=== PATIENT | female | born 1960 | race Caucasian/White ===

== ENCOUNTER 2017-03-23 10:12 | Emergency (ER) | payer OTHER | END 2017-03-23 11:38 | disposition home or self-care (01) | LOC: D.ER 10:12 | DX: S29.011A Strain of muscle and tendon of front wall of thorax, initial encounter (principal); X58.XXXA Exposure to other specified factors, initial encounter; Y93.89 Activity, other specified; Y92.89 Other specified places as the place of occurrence of the external cause; I10 Essential (primary) hypertension; E05.90 Thyrotoxicosis, unspecified without thyrotoxic crisis or storm; E83.119 Hemochromatosis, unspecified; F17.200 Nicotine dependence, unspecified, uncomplicated ==

== ENCOUNTER 2017-06-26 14:27 | Emergency (ER) | payer OTHER ==
[2017-06-26 15:06] LABS: BASOPHILS 0.1 % (0-2); EOSINOPHILS 0.3 % (0-7); HEMATOCRIT 30.9 % (36.0-48.0); HEMOGLOBIN 10.6 g/dL (12-16); IMMATURE GRANULOCYTES 0.1 % (0-5); LYMPHOCYTES 24.9 % (15-50); MCHC 34.3 g/dL (31.0-37.0); MCV 110.8 fL (80.0-100.0); MEAN PLATELET VOLUME 9.1 fL (7.4-10.4); MONOCYTES 6.2 % (2-11); NEUTROPHILS 68.4 % (40-80); PLATELET COUNT 322 10x3/uL (130-400); RBC 2.79 10x6/uL (4.00-5.40); RDW 14.5 % (11.5-14.5); WBC 6.8 10x3/uL (4.8-10.8)
[2017-06-26 15:24] LABS: ALBUMIN 3.4 g/dL (3.4-5.0); ANION GAP 10.2 mmol/L (8-16); BILIRUBIN - TOTAL 0.48 mg/dL (0.2-1.3); CALCIUM 8.4 mg/dL (8.5-10.1); CARBON DIOXIDE 31.8 mmol/L (21.0-32.0); CREATININE - SERUM 1.1 mg/dL (0.6-1.3); PROTEIN - SERUM 6.5 g/dL (6.4-8.2)
[2017-06-26 15:53] LABS: APPEARANCE CLEAR (CLEAR); BILIRUBIN NEGATIVE (NEGATIVE); COLOR YELLOW (YELLOW); GLUCOSE NEGATIVE (NEGATIVE); KETONE NEGATIVE (NEGATIVE); LEUKOCYTE ESTERASE 1+ (NEGATIVE); NITRITE NEGATIVE (NEGATIVE); PROTEIN 1+ mg/dL (NEGATIVE); UROBILINOGEN NORMAL (NORMAL)
[2017-06-26 15:56] LABS: BACTERIA MODERATE /hpf (NONE SEEN); EPITHELIAL CELLS 0-5 /hpf (0-5); WHITE CELLS - URINE 0-5 /hpf (0-5)
[2017-06-26 16:30] LABS: THYROID STIMULATING HORMONE 0.39 uIU/mL (0.36-3.74)
[2017-06-26 17:00] LABS: HELICOBACTER PYLORI IGG POSITIVE (NEGATIVE)
== END 2017-06-26 17:48 | disposition home or self-care (01) ==
LOC: D.ER 14:27
PROVIDERS: Emergency Medicine
DX: E87.6 Hypokalemia (principal); K29.60 Other gastritis without bleeding; I10 Essential (primary) hypertension; E05.90 Thyrotoxicosis, unspecified without thyrotoxic crisis or storm; F17.200 Nicotine dependence, unspecified, uncomplicated

== ENCOUNTER 2017-08-12 15:04 | Inpatient (IN) | payer OTHER ==
[2017-08-12] MEDS ORDERED: NEURONTIN 300300 MG PO ×2 (15:32)
[2017-08-12] MEDS ORDERED: NORVASC5 MG PO (15:33)
[2017-08-12] MEDS ORDERED: VITAMIN B-121000 MCG PO (15:34)
[2017-08-12] MEDS ORDERED: VITAMIN B-1000 MCG/M IM (15:35)
[2017-08-12] MEDS ORDERED: CYMBALTA60 MG PO (15:35)
[2017-08-12] MEDS ORDERED: PREVACID30 MG PO (15:36)
[2017-08-12] MEDS ORDERED: ZOFRAN8 MG PO (15:37)
[2017-08-12] MEDS ORDERED: VITAMIN B-1100 M1 (15:47)
[2017-08-12] MEDS ORDERED: VITAMIN B-625 MG PO (15:47)
[2017-08-12] MEDS ORDERED: XARELTO20 MG PO (15:52)
[2017-08-12 16:27] VITALS: BP 151/88; BMI 25.6
--- NOTE | 2017-08-12 16:45 | NUR ---
ADMIT TO FLOOR FROM [facility]. CAME TO FLOOR IN W/C. ALERT AND ORIENTED X4. SPEECH CLEAR. PT STATES SHE HAD GUILLAIN BARRE AND HAS NUMBNESS AND TINGLING TO BILAT HANDS. HAS NUMBNESS TO TO BLE. LLE HAS 4+ EDEMA, RLE HAS 3+ EDEMA. SHE HAS POOR FINE MOTOR SKILLS TO BOTH HANDS AND ALSO HAS TREMORS TO BUE. WHEN STANDING SHE HAS POOR BALANCE.
--- NOTE | 2017-08-12 18:15 | NUR ---
SITTING UP EATING SUPPER IN BED.
--- NOTE | 2017-08-12 20:30 | NUR ---
IN BED, AWAKE. NO C/O AT THIS TIME.
[2017-08-12] MEDS ORDERED: OXYCODONE HCL5 MG PO (20:35)
[2017-08-12 20:41] VITALS: BP 163/88
[2017-08-12] MEDS ORDERED: MOBIC7.5 MG PO (21:12)
[2017-08-12] MEDS ORDERED: SYNTHROID75 MCG PO (21:13)
--- NOTE | 2017-08-12 21:30 | NUR ---
AFTER SORTING OUT VARIOUS ISSUES WITH MED SCHEDULING AND INCOMPLETE DISCHARGE MED REC FROM [facility]. WAS ABLE TO GIVE PROPERLY SCHEDULED HS MEDS WELL OXY IR 5MG PO FOR PAIN LEVEL OF 8/10 IN BILAT HANDS. HAS NO OTHER C/O AT THIS TIME.
--- NOTE | 2017-08-12 23:10 | NUR ---
PT. IN BED WITH HOB UP FOR COMFORT WATCHING TV. NO VOICED NEEDS AT THIS TIME. CALL LIGHT WITHIN REACH.
--- NOTE | 2017-08-13 01:29 | NUR ---
PT. IN BED LYING ON HER LEFT SIDE WITH EYES CLOSED AND RESP. DEEP AND EVEN. CALL LIGHT WITHIN REACH.
--- NOTE | 2017-08-13 04:16 | NUR ---
PT. IN BED WITH HOB UP FOR COMFORT WITH EYES CLOSED AND RESP. EVEN. CALL LIGHT WITHIN REACH.
[2017-08-13 07:41] LABS: BASOPHILS 0.2 % (0-2); HEMATOCRIT 28.1 % (36.0-48.0); HEMOGLOBIN 9.1 g/dL (12-16); IMMATURE GRANULOCYTES 0.2 % (0-5); LYMPHOCYTES 26.4 % (15-50); MCHC 32.4 g/dL (31.0-37.0); MCV 111.1 fL (80.0-100.0); MEAN PLATELET VOLUME 8.7 fL (7.4-10.4); MONOCYTES 9.2 % (2-11); RBC 2.53 10x6/uL (4.00-5.40); RDW 18.8 % (11.5-14.5)
[2017-08-13 07:54] LABS: ANION GAP 9.6 mmol/L (8-16); CALCIUM 8.7 mg/dL (8.5-10.1); CARBON DIOXIDE 31.7 mmol/L (21.0-32.0); CREATININE - SERUM 1.1 mg/dL (0.6-1.3); PLATELET COUNT 251 10x3/uL (130-400); POTASSIUM - SERUM 4.3 mmol/L (3.5-5.1)
--- NOTE | 2017-08-13 08:00 | NUR ---
BREAKFAST YOBANI HOLDER.CL IN REACH.
[2017-08-13 08:07] VITALS: BP 151/96
--- NOTE | 2017-08-13 12:00 | NUR ---
SITTING UP IN BED EATING LUNCH.CL IN REACH.
[2017-08-13 14:06] VITALS: BMI 25.5
--- NOTE | 2017-08-13 16:00 | NUR ---
RESTING QUIETLY.DENIES NEEDS.
--- NOTE | 2017-08-13 18:07 | RHP ---
PATIENT: ARINA DYER MEDICAL RECORD: [id number] ACCOUNT: [id number] LOCATION:[facility]1119 : 64 ADMISSION DATE: 08/12/17 REHABILITATION HISTORY AND PHYSICAL EXAMINATION POST ADMISSION PHYSICIAN EXAMINATION Post-admission Physical Examination and History and Physical DATE OF ADMISSION: 08/12/2017 ADMITTING DIAGNOSES: Inflammatory demyelinating polyneuropathy. HISTORY OF PRESENT ILLNESS: The patient is a 57-year-old female patient, who is being admitted to the rehab with a working diagnosis of inflammatory demyelinating polyneuropathy. The patient has a past medical history of pernicious anemia, B12 deficiency, hypothyroidism, hemochromatosis and peripheral neuropathy. She is followed by Dr. King and has an extensive workup revealing B1, B6, and B12 deficiency, focal myelomalacia at C5-C6 with a bulging disc. The patient's symptoms started 3 years ago and has progressed to involve both arms and legs. She reports she has increased falls in the last 3 weeks and on July 26 had trouble walking even with her walker. She was transferred from [facility] in [place] for further neurological evaluation and treatment. A lumbar puncture was completed and was unremarkable. The patient is status post IVIG on August 05. She participated with therapy; however, require moderate assist with ambulation and ADLs and transfers. She is motivated to return home as close to her prior level of function if possible and acute rehab has ordered by her PCP. COMORBIDITIES: In this patient include sensory ataxia gait abnormality, parathesias, cervical inflammatory demyelinating polyneuropathy, hypertension, anemia, B12 deficiency, hypothyroidism, hemochromatosis, CVA, migraines, polyneuropathy, history of fall and history of C5 fracture. PAST MEDICAL HISTORY: Significant for pernicious anemia, B12 deficiency, hypothyroidism, hemochromatosis, CVA, vertiginous migraines and C5 fracture. PAST SURGICAL HISTORY: Includes wisdom tooth extraction, , hysterectomy, cyst removal, anterior cruciate ligament repair, neck surgery, cholecystectomy and cardiac catheterization. ALLERGIES: SULFA, NITROGLYCERIN, DARVOCET, TORADOL, AND DOXYCYCLINE. CURRENT MEDICATIONS: Include Synthroid 75 mcg daily. She is on thiamine (B1 vitamin) daily, Xarelto 20 mg with dinner, Protonix 40 mg daily, B12 injections as needed. She is on Norvasc 5 mg daily, Cymbalta 60 mg q.h.s., Mobic 15 mg q.h.s., Oxy.IR 5 mg q.6 hours p.r.n., Zofran 8 mg q.8 hours p.r.n., Neurontin 300 mg b.i.d. and 300 mg at bedtime and polyethylene glycol 17 grams in 8 ounces of water daily. HABITS: No alcohol or tobacco use. FAMILY HISTORY: Noncontributory. SOCIAL HISTORY: The patient hopes to return back home and get back to her prior level of functioning. HISTORY AND PHYSICAL [id number] ARINA DYER REVIEW OF SYSTEMS: GENERAL: Does complain of weakness. HEENT: She denies cold, cough, or congestion. CARDIOVASCULAR: Denies chest pain. PHYSICAL EXAMINATION: VITAL SIGNS: Stable, afebrile. GENERAL: A well-developed female, in no acute distress, alert upon exam. HEENT: Normocephalic and atraumatic. Mucosa moist. NECK: Supple, with no lymphadenopathy. LUNGS: Clear at this time. HEART: Regular rate and rhythm. ABDOMEN: Benign. EXTREMITIES: No clubbing, cyanosis or edema. NEUROLOGIC: Does have decreased sensation. LABORATORY DATA: Her white count is 4.0, H&H 9 and 28 and platelet count was noted to be 251. Her MCV is 111.1. Her sodium is 143, potassium 4.3, BUN and creatinine of 16 and 1.1 and blood sugar was noted to be 90. ASSESSMENT: This is a 57-year-old female patient admitted to rehab with a working diagnosis of inflammatory demyelinating polyneuropathy. The patient has potential to make improvement. We instituted the following multidisciplinary therapies including to, but not limited to physical, occupational, respiratory, speech, nutritional services, prosthetics and orthotics. Given her complex condition and risk for more complications, rehabilitation services cannot be provided at a low level of care such as a detention facility. PLAN: 1. Admit to [facility] rehab for intensive inpatient therapy to include the following disciplines: A. Physical therapy to improve gait, all transfer skills and bed mobility to a modified independent level. B. Occupational therapy to improve activities of daily living to a modified independent level. C. Case management to assist with discharge planning and placement options. D. Nutrition to assist with nutritional needs. E. Rehabilitation nursing to assist in monitoring the patient's underlying medical conditions and to assist with any type of bowel or bladder management. 2. The patient's current medication and medical care will be continued. 3. The patient will be placed on standard fall precautions. 4. The patient's estimated length of stay is approximately 7-10 days. 5. Discuss this patient during care team staff meeting this week. TRANSINT:[id number] Voice Confirmation ID: [id number] DOCUMENT ID: [id number] HECTOR notes whether there has been none or any medical/functional change since admission: - No change since prescreen. HECTOR attests patient continues to be appropriate for IRF: - Continues to be appropriate. HISTORY AND PHYSICAL [id number] ARINA DYER SCOTT MD at 1807 CC: [id number] DICTATION DATE: 08/13/17 1148 WEAPONS MECHANIC: 08/13/17 1434 ADM IN [facility] [address] [id number]
--- NOTE | 2017-08-13 19:30 | NUR ---
PT. IN BED WITH HOB UP FOR COMFORT AND IS WATCHING TV. ASSESSMENT COMPLETED. ASSISTED TO/FROM BR. POSITIONED TO COMFORT. CALL LIGHT WITHIN REACH. PT. CHANGED CLOTHES INTO HOSPITAL GOWN AT HER REQUEST.
[2017-08-13 19:45] VITALS: BP 127/75
--- NOTE | 2017-08-13 23:12 | NUR ---
PT. IN BED WITH HOB UP FOR COMFORT WITH EYES CLOSED AND RESP. EVEN. CALL LIGHT WITHIN REACH.
--- NOTE | 2017-08-14 03:05 | NUR ---
PT. IN BED LYING ON HER LEFT SIDE WITH EYES CLOSED AND RESP. EVEN. CALL LIGHT WITHIN REACH.
--- NOTE | 2017-08-14 08:00 | NUR ---
SHIFT ASSMT COMPLETED.DENIES NEEDS.CL IN REACH.
[2017-08-14 08:36] VITALS: BP 134/75
--- NOTE | 2017-08-14 12:00 | NUR ---
SITTING UP IN CHAIR;LUNCH GIVEN.CL IN REACH.
--- NOTE | 2017-08-14 16:00 | NUR ---
SITTING UP.DENIES NEEDS.
--- NOTE | 2017-08-14 19:30 | NUR ---
PT IS RESTING IN BED WITH EYES CLOSED. AWOKE EASILY TO VERBAL STIMULI. ALERT AND ORIENTED X 3. DENIES ACUTE DISCOMFORT AT THIS TIME. VSS. ASSISTED TO THE BATHROOM WITH CGA FOR TRANSFERS. SBA FOR TOILETING. LARGE FORMED BM NOTED. SR'S ARE UP X 2 IN BED. CALL LIGHT AND BEDSIDE TABLE ARE WITHIN EASY REACH.
[2017-08-14 19:37] VITALS: BP 129/68
--- NOTE | 2017-08-15 00:01 | NUR ---
PT ASSISTED TO THE BATHROOM WITH CGA. NO FURTHER NEEDS VOICED.
--- NOTE | 2017-08-15 03:10 | NUR ---
RESTING IN BED WITH EYES CLOSED.
--- NOTE | 2017-08-15 04:24 | NUR ---
RESTING IN BED WITH CLOSED. LAYING IN BED IN PRONE POSITION. NO S/S OF DISTRESS OBSERVED. CALL LIGHT AND OVERBED TABLE IN REACH.
--- NOTE | 2017-08-15 06:21 | NUR ---
PT RESTING IN BED WITH EYES OPEN. TOLERATED AM MED WITHOUT DIFFICULTY.
--- NOTE | 2017-08-15 07:25 | NUR ---
ASSESSMENT DONE. DENIES NEEDS.
[2017-08-15 08:29] VITALS: BP 129/80
--- NOTE | 2017-08-15 17:15 | NUR ---
WITHOUT CHANGES OR DISTRESS NOTED AT THIS TIME. DENIES NEEDS.
[2017-08-15 19:00] VITALS: BP 150/90
--- NOTE | 2017-08-15 19:15 | NUR ---
PT UP IN BED WITH HOB UP FOR COMFORT. WATCHING TV. ALERT & ORIENTED. NO O2. NO IV. BED IN LOWEST POSITION AND CALL LIGHT WITHIN REACH.
--- NOTE | 2017-08-15 23:15 | NUR ---
PT IN BED WITH HOB UP FOR COMFORT. WATCHING TV. BED IN LOWEST POSITION AND CALL LIGHT WITHIN REACH.
[2017-08-16] VITALS (12 sets, daily range): BP systolic 90–158; BP diastolic 37–97
--- NOTE | 2017-08-16 03:40 | NUR ---
RESTING IN BED WITH EYES CLOSED. NO S/S OF DISTRESS OBSERVED. CALL LIGHT AND OVERBED TABLE IN REACH.
--- NOTE | 2017-08-16 05:01 | NUR ---
PT LYING IN BED. EYES CLOSED. RESP. EVEN. BED IN LOWEST POSITION AND CALL LIGHT WITHIN REACH.
[2017-08-16 06:30] LABS: BASOPHILS 0.2 % (0-2); EOSINOPHILS 3.7 % (0-7); HEMATOCRIT 25.6 % (36.0-48.0); HEMOGLOBIN 8.4 g/dL (12-16); IMMATURE GRANULOCYTES 0.2 % (0-5); LYMPHOCYTES 39.8 % (15-50); MCH 36.7 pg (26.0-34.0); MCHC 32.8 g/dL (31.0-37.0); MCV 111.8 fL (80.0-100.0); MONOCYTES 9.2 % (2-11); NEUTROPHILS 46.9 % (40-80); PLATELET COUNT 262 10x3/uL (130-400); RBC 2.29 10x6/uL (4.00-5.40); RDW 18.5 % (11.5-14.5); WBC 4.7 10x3/uL (4.8-10.8)
[2017-08-16 06:46] LABS: ANION GAP 11.6 mmol/L (8-16); CARBON DIOXIDE 28.5 mmol/L (21.0-32.0); CREATININE - SERUM 1.1 mg/dL (0.6-1.3); POTASSIUM - SERUM 4.1 mmol/L (3.5-5.1)
--- NOTE | 2017-08-16 08:09 | NUR ---
EATING BREAKFAST. DENIES NEEDS. CALL LIGHT IN REACH
--- NOTE | 2017-08-16 08:19 | NUR ---
DR ACUNA ON FLOOR TALKING TO PT IN HER ROOM.
--- NOTE | 2017-08-16 12:16 | NUR ---
SITTING UP EATING LUNCH. DENIES NEEDS OR C/O. STILL HAS TREMORS TO BOTH HANDS AND POOR BALANCE.
--- NOTE | 2017-08-16 15:29 | NUR ---
SITTING IN THERAPY WORKING WITH THERAPIST AND RECIEVING BLOOD.
--- NOTE | 2017-08-16 20:00 | NUR ---
PT. IN BED WITH HOB UP FOR COMFORT AND IS WATCHING TV. ASSESSMENT COMPLETED. NO VOICED NEEDS AND HER CALL LIGHT IS WITHIN REACH. PT. KNOWS SHE IS TO GET ANOTHER UNIT OF BLOOD THIS EVENING.
--- NOTE | 2017-08-16 23:07 | NUR ---
PT. IN BED WITH HOB UP FOR COMFORT. EYES CLOSED AND RESP. DEEP AND EVEN. CALL LIGHT WITHIN REACH.
[2017-08-17] VITALS (9 sets, daily range): BP systolic 125–147; BP diastolic 78–101
--- NOTE | 2017-08-17 03:02 | NUR ---
PT. IN BED WITH HOB UP FOR COMFORT WITH EYES CLOSED AND RESP. DEEP AND EVEN. CALL LIGHT WITHIN REACH.
[2017-08-17 06:40] LABS: BASOPHILS 0.6 % (0-2); EOSINOPHILS 2.2 % (0-7); IMMATURE GRANULOCYTES 0.2 % (0-5); LYMPHOCYTES 24.5 % (15-50); MCH 35.1 pg (26.0-34.0); MCHC 33.6 g/dL (31.0-37.0); MEAN PLATELET VOLUME 9.1 fL (7.4-10.4); NEUTROPHILS 63.5 % (40-80); PLATELET COUNT 217 10x3/uL (130-400); RDW 20.7 % (11.5-14.5)
[2017-08-17 06:48] LABS: HEMATOCRIT 32.7 % (36.0-48.0); MCV 104.5 fL (80.0-100.0); RBC 3.13 10x6/uL (4.00-5.40)
--- NOTE | 2017-08-17 08:00 | NUR ---
RETURNED TO BED AFTER TOLIETING.CL IN REACH.BREAKFAST GIVEN.
--- NOTE | 2017-08-17 12:00 | NUR ---
EATING LUNCH.CL IN REACH.
--- NOTE | 2017-08-17 16:00 | NUR ---
RESTING QUIETLY.CL IN REACH.
--- NOTE | 2017-08-17 20:00 | NUR ---
PT. IN W/C AND WATCHING TV. ASSESSMENT COMPLETED. NO VOICED NEEDS AT THIS TIME. CALL LIGHT WITHIN REACH.
--- NOTE | 2017-08-17 23:15 | NUR ---
PT. SITTING IN BED WATCHING TV. NO VOICED NEEDS AT THIS TIME. CALL LIGHT WITHIN REACH.
--- NOTE | 2017-08-18 03:13 | NUR ---
PT. IN BED WITH HOB SLIGHTLY ELEVATED. EYES CLOSED AND RESP. EVEN. CALL LIGHT WITHIN REACH.
[2017-08-18 08:00] VITALS: BP 127/74
--- NOTE | 2017-08-18 08:00 | NUR ---
SHIFT ASSMT COMPLETED.DENIES NEEDS.BREAKFAST TRAY GIVEN.CL IN REACH.
--- NOTE | 2017-08-18 10:32 | NUR ---
PT CALLED FOR ASSISTANCE TO BATHROOM.REFUSES USE OF BED OR CHAIR ALARM.EXPLAINED THE NEED FOR SAFETY AND THE HX OF FALL;STATES I SAID I WILL CALL BUT ABSOLUTELY WILL NOT USE BED OR CHAIR ALARM PAD.
--- NOTE | 2017-08-18 12:00 | NUR ---
SITTING UP EATING LUNCH.
--- NOTE | 2017-08-18 16:00 | NUR ---
RESTING QUIETLY.CL IN REACH.
[2017-08-18 19:55] VITALS: BP 155/88
--- NOTE | 2017-08-18 20:00 | NUR ---
PT. IN BED WITH HOB UP FOR COMFORT AND IS WATCHING TV. ASSESSMENT COMPLETED. NO VOICED NEEDS AT THIS TIME AND HER CALL LIGHT IS WITHIN REACH.
--- NOTE | 2017-08-18 23:37 | NUR ---
PT. IN BED WITH HOB SLIGHTLY ELEVATED FOR COMFORT. EYES CLOSED AND RESP. EVEN. CALL LIGHT WITHIN REACH.
--- NOTE | 2017-08-19 03:09 | NUR ---
PT. IN BED WITH HOB SLIGHTLY ELEVATED FOR COMFORT. EYES CLOSED AND RESP. DEEP AND EVEN. CALL LIGHT WITHIN REACH.
[2017-08-19 05:36] LABS: BASOPHILS 0.5 % (0-2); EOSINOPHILS 2.5 % (0-7); HEMOGLOBIN 11.9 g/dL (12-16); IMMATURE GRANULOCYTES 0.2 % (0-5); LYMPHOCYTES 21.4 % (15-50); MCH 34.9 pg (26.0-34.0); MCHC 33.1 g/dL (31.0-37.0); MCV 105.6 fL (80.0-100.0); MEAN PLATELET VOLUME 8.9 fL (7.4-10.4); MONOCYTES 8.4 % (2-11); PLATELET COUNT 252 10x3/uL (130-400); RBC 3.41 10x6/uL (4.00-5.40); RDW 18.8 % (11.5-14.5); WBC 6.1 10x3/uL (4.8-10.8)
[2017-08-19 05:52] LABS: ANION GAP 12.2 mmol/L (8-16); CALCIUM 9.6 mg/dL (8.5-10.1); CARBON DIOXIDE 27.9 mmol/L (21.0-32.0); CREATININE - SERUM 0.9 mg/dL (0.6-1.3); POTASSIUM - SERUM 4.1 mmol/L (3.5-5.1)
[2017-08-19 15:07] VITALS: BP 157/100
--- NOTE | 2017-08-19 15:07 | NUR ---
IN W/C IN THERAPY
--- NOTE | 2017-08-19 18:29 | NUR ---
SITTING UP IN BED WATCHING TV. CALL LIGHT IN REACH
[2017-08-19 19:00] VITALS: BP 169/98
--- NOTE | 2017-08-19 19:05 | NUR ---
PT UP IN W/C. FAMILY IN ROOM. ALERT & ORIENTED. NO O2. NO IV. BED/CHAIR WAIVER. HAND/ARM TREMORS. CALL LIGHT WITHIN REACH.
--- NOTE | 2017-08-19 21:45 | NUR ---
IN BED, EYES CLOSED AT THIS TIME. NO DISCOMFORT NOTED.
--- NOTE | 2017-08-20 01:45 | NUR ---
PT LYING IN BED. EYES CLOSED. CHEST RISING AND FALLING. BED IN LOWEST POSITION AND CALL LIGHT WITHIN REACH.
--- NOTE | 2017-08-20 05:16 | NUR ---
ASSISTED PT TO BATHROOM AND BACK TO BED.
[2017-08-20 07:59] VITALS: BP 142/90
--- NOTE | 2017-08-20 08:18 | NUR ---
EATING BREAKFAST. CALL LIGHT IN REACH
--- NOTE | 2017-08-20 12:16 | NUR ---
EATING LUNCH IN ROOM. DENIES NEEDS. CALL LIGHT IN ROOM
--- NOTE | 2017-08-20 18:20 | NUR ---
SHE SAYS KPAD DOES NOT GET WARM ENOUGH TO HELP HER. IS SITTING UP IN BED EATING SUPPER.
[2017-08-20 19:23] VITALS: BP 131/78
--- NOTE | 2017-08-20 19:27 | NUR ---
PT IS RESTING QUIETLY IN BED WITH EYES CLOSED. AWOKE EASILY TO VERBAL STIMULI. ALERT AND ORIENTED X 3. DENIES ANY PAIN OR DISCOMFORT AT THIS TIME. NO NEEDS VOICED. SR'S ARE UP X 2 IN BED. CALL LIGHT AND BEDSIDE TABLE ARE WITHIN EASY REACH. PT HAS A SIGNED BED ALARM WAIVER.
--- NOTE | 2017-08-20 20:05 | NUR ---
IN BED, AWAKE. DENIES NEEDS.
--- NOTE | 2017-08-20 21:52 | NUR ---
RESTING QUIETLY IN BED WITH EYES CLOSED. RESPS ARE EVEN AND UNLABORED. NO ACUTE DISTRESS NOTED.
--- NOTE | 2017-08-20 22:40 | NUR ---
PT NOTED SITTING ON HER KNEES BESIDE HER BED. SHE STATED SHE TRIED TO GET INTO HER WC AND HER KNEES BUCKLED. SHE STATES SHE DID NOT FALL OR GO DOWN. HARD. I BEAR HUGGED HER AND LIFTED HER TO HER FEET. SHE SCREAMED OUT IN PAIN STATING A RIB ON HER RIGHT SIDE POPPED. SHE THEN TRANSFERRED HERSELF TO THE AND THE TOILET. VOIDED WITHOUT DIFFICULTY. SHE THEN TRANSFERRED HERSELF BACK TO BED. ALL TRANSFERS DONE WITHOUT COMPLAINT OF PAIN. PT STATED THAT HER SON DID THE SAME THING TO HER LAST MONTH ON THE LEFT SIDE, AND IT WAS HER CARTILAGE THAT SEPERATED. AFTER I LEFT THE ROOM, PT CALLED ME BACK AND WAS CRYING AND ASKED FOR SOME TYLENOL AND A COKE. PT STOPPED MOANING WHEN GIVEN THE TYLENOL. DR ACUNA NOTIFIED, AND XRAY ORDERED.
--- NOTE | 2017-08-20 23:43 | NUR ---
PT RETURNED FROM XRAY VIA WC PROPELLED BY [employer]. 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 PT TRANSFERRED HERSELF TO BED AND REPOSITIONED HERSELF IN BED. NO S@S OF PAIN NOTED DURING THESE TRANSFERS.
--- NOTE | 2017-08-20 23:54 | NUR ---
MESSAGE LEFT ON DR RIVERA PHONE ASKING IF HE WANTS THE XRAY READ TONIGHT OR IN AM.
--- NOTE | 2017-08-20 23:59 | NUR ---
MIGUEL WITH [facility] PAGED AT THIS TIME.
--- NOTE | 2017-08-21 01:49 | NUR ---
RESTING QUIETLY IN BED WITH EYES CLOSED.
--- NOTE | 2017-08-21 05:23 | NUR ---
PT ASSISTED TO THE BATHROOM WITH SBA FOR ALL TASKS. NO ACUTE DISTRESS NOTED.
--- NOTE | 2017-08-21 06:22 | NUR ---
VOICE MAIL LEFT WITH SON ABOUT fall PM.
--- NOTE | 2017-08-21 06:24 | NUR ---
I CALLED THE SECOND FAMILY CONTACT, THAT SAID DAUGHTER. PTS VOICE WAS ON VOICEMAIL. NO MESSAGE LEFT.
--- NOTE | 2017-08-21 08:00 | NUR ---
NOTIFIED /PHONE.NO ANSWER.LEFT MESSAGE.XRAY RESULTS STILL PENDING.
--- NOTE | 2017-08-21 08:00 | NUR ---
SHIFT ASSMT COMPLETED.REFUSED BREAKFAST.STATED GOING OUTSIDE TO SMOKE.CAUTIONED NOT TO BE LEFT UNATTENDED.STATES SHE DOESNT CARE SHE IS GOING.
--- NOTE | 2017-08-21 08:10 | NUR ---
ON FLOOR ROUNDING AND REPORTED HE DID GET MESSAGE.
[2017-08-21 08:13] VITALS: BP 138/82
--- NOTE | 2017-08-21 12:00 | NUR ---
PLACED ON ALARM MONITORS FOR BED AND CHAIR DUE TO FALL RISK.NICOTINE PATCH ORDERED.CL IN REACH.
--- NOTE | 2017-08-21 13:25 | NUR ---
CLINICALS FAXED TO TAMELA Yoder AT [facility] , AUTH. # [id number] WITH CONFORMATION RECIEVED
--- NOTE | 2017-08-21 13:27 | NUR ---
RD f/u note Pt without complaints today. Meds reviewed BM 08/18, PO 50-75% on Regular diet. Dav 19, skin noted to have multiple bruises. Pt discussed at meeting today, with plan of going home of saturday. No recommendations Plan: continue current diet, continue selective menu, RD to follow, continue plan of care
--- NOTE | 2017-08-21 14:22 | NUR ---
CARE TEAM MEETING: SPOKE WITH PATIENT AND HER SON AND TENATIVE DISCHARGE DATE IS 08/23/17. CLINICALS AHVE BEEN FAXED TO HER INSURANCE. WILL MARIELENA TO FOLLOW WITH PATIENT
--- NOTE | 2017-08-21 16:00 | NUR ---
SITTING ON SIDE OF BED.EATING LUNCH.DENIES NEEDS.
--- NOTE | 2017-08-21 16:00 | NUR ---
DENIES NEEDS.COMPLIANT WITH ALARM AND CL.
--- NOTE | 2017-08-21 19:00 | NUR ---
PATIENT SITTING UP IN BED. DENIES NEEDS. EXPRESSES SOME AGGRAVATION AT ROOMMATE'S NATHAN ALARM SOUNDING FREQUENTLY WITHOUT PATIENT ATTEMPTING OOB. WILL FOLLOW UP AFTER NURSING REPORT.
[2017-08-21 20:35] VITALS: BP 151/96
--- NOTE | 2017-08-21 20:35 | NUR ---
ASSESSMENT AND HS MEDS COMPLETE. GAVE PATIENT TYLENOL ES 500MG PO FOR HEADACHE PAIN OF LEVEL 3/10.
--- NOTE | 2017-08-21 22:10 | NUR ---
IN BED, AWAKE. DENIES NEEDS.
--- NOTE | 2017-08-21 22:10 | NUR ---
REMAINS IN BED, AWAKE, EYES CLOSED.
--- NOTE | 2017-08-21 23:20 | NUR ---
GAVE PATIENT OXY IR 5MG PO FOR PAIN LEVEL OF 8/10 IN RIGHT SHOULDER AND BILAT HANDS.
--- NOTE | 2017-08-22 00:35 | NUR ---
REQUESTED ASSIST TO STAND AT BEDSIDE TO WORK OUT A CRAMP IN HER LEFT FOOT, WHICH SHE DID SUCCESSFULLY.
--- NOTE | 2017-08-22 02:35 | NUR ---
RESTING IN BED, EYES CLOSED.
--- NOTE | 2017-08-22 07:32 | NUR ---
LYING IN BED EYES CLOSED RESTING COMFORTABLY. APPROPRIATE RISE AND FALL OF CHEST. NO S/SX OF DISTRESS. CALL LIGHT WITHIN REACH, BED LOW AND ALARM ON. WILL CONTINUE TO MONITOR
--- NOTE | 2017-08-22 07:52 | NUR ---
SITTING UP IN BED EATING BREAKFAST.CL IN REACH.
[2017-08-22 10:06] VITALS: BP 148/93
--- NOTE | 2017-08-22 11:07 | NUR ---
SITTING UP IN BED READING NEWSPAPER. C/O TV NOT WORKING. PUT IN WORKORDER FOR REPAIR. CALL LIGHT WITHIN REACH. BED ALARM ON . WILL CONTINUE TO MONITOR
--- NOTE | 2017-08-22 15:31 | NUR ---
ASSISTED TO RESTROOM AND BACK TO BED WITH STANDBY ASSIST. CALL LIGHT WITHIN REACH BED ALARM ON AND BED IN LOWEST POSITION. WILL CONTINUE TO MONITOR
--- NOTE | 2017-08-22 19:00 | NUR ---
ASSISTED PATIENT UP TO BR TO URINATE AND THEN BACK TO BED WHERE SHE CHANGED TO HOSPITAL GOWN WITH MIN ASSIST.
[2017-08-22 21:15] VITALS: BP 154/92
--- NOTE | 2017-08-22 21:15 | NUR ---
ASSISTED PATIENT UP TO BR TO URINATE AND THEN BACK TO BED. ASSESSMENT AND HS MEDS THEN COMPLETED. GAVE PATIENT OXY IR 5MG FOR PAIN LEVEL OF 7/10 IN BILAT LEGS AND HANDS.
--- NOTE | 2017-08-22 22:10 | NUR ---
AWAKE. DENIES NEEDS.
--- NOTE | 2017-08-23 00:10 | NUR ---
RESTING IN BED, EYES CLOSED. HOB UP 20 DEGREES. APPEARS COMFORTABLE.
--- NOTE | 2017-08-23 02:30 | NUR ---
IN BED, EYES CLOSED. NO DISTRESS EVIDENT.
--- NOTE | 2017-08-23 04:45 | NUR ---
CONTINUES IN BED, EYES CLOSED. RESPIRATIONS ARE QUIET AND UNLABORED.
--- NOTE | 2017-08-23 06:05 | NUR ---
GAVE PATIENT SCHEDULED SYNTHROID. DENIES NEEDS.
--- NOTE | 2017-08-23 08:18 | NUR ---
EATING BREAKFAST IN ROOM. CALL LIGHT IN REACH
--- NOTE | 2017-08-23 08:30 | NUR ---
PT RESTING IN BED WITH EYES OPEN CALL LIGHT IN REACH NO PROBLEMS WILL MONITER
[2017-08-23 08:45] VITALS: BP 137/90
--- NOTE | 2017-08-23 10:43 | NUR ---
PATIENT DISCHARING HOME WITH FAMILY. [facility] WILL FOLLOW WITH PATIENT AT HOME. [facility] PATIENT WILL DELIVER A WHEELCHAIR AND A BEDSIDE COMMODE. DR. RODARTE 08/29/17 @ 10:30, PATIENT HAS A PENDING APPOINTMENT WITH NEUROLOGIST IN [place]. ORDERS HAVE BEEN FAXED WITH CONFORMATION RECIEVED.PATIENT CHOICE FORM FOR HOME HEALTH HAS BEEN SIGNED AND FILED IN CHART.
--- NOTE | 2017-08-23 12:00 | NUR ---
PT DISCHARGED TO HOME VIA WHEELCHAIR WITH SON PT DISCHARGE SUMMARY AND DISCHARGE SUMMARY REVIEWED WITH PT CALLED ALL MEDS TO [facility]
--- NOTE | 2017-08-23 14:09 | NUR ---
LEFT MESSAGE WITH TAMELA AT [facility] THAT PATIENT HAS DISCHARGED HOME
--- NOTE | 2017-10-14 12:07 | DS ---
PATIENT:ARINA DYER :64 MEDICAL RECORD: [id number] DISCHARGE SUMMARY ADMISSION DATE: 08/12/17 DISCHARGE DATE: 08/23/17 This is a discharge dated 08/23/2017 from inpatient rehab. PRIMARY DIAGNOSES: Decreased functional ability and ability to provide activities of daily living secondary to inflammatory demyelinating polyneuropathy. SECONDARY DIAGNOSES: 1. B12 deficiency. 2. Pernicious anemia. 3. Hypothyroidism. 4. Hemochromatosis. 5. Peripheral neuropathy. 6. Sensory ataxia gait abnormality. 7. Paraesthesias. 8. Hypertension. 9. Migraines. 10. Cerebrovascular accident by history. 11. Status post fall with history of C5 fracture. HOSPITAL COURSE: Full H&P is located elsewhere on the chart on this 57-year-old female who was admitted to inpatient rehab for physical therapy and occupational therapy to improve gait, transfer skills, bed mobility, and activities of daily living to a modified independent level. She was evaluated by PT and OT and their plans of care were followed. She required fci care for observation and assessment and medication administration. She continued on appropriate home medications during this hospital stay. She was transfused with packed red blood cells for an H&H of 8.4 and 25.6. She was cooperative with therapies, progressing towards goals. Case management was involved for discharge planning. She was considered stable for discharge on 08/23/2017. DISCHARGE MEDICATIONS: As per discharge medication reconciliation. DISCHARGE DISPOSITION: The patient is discharged home. She will continue her current diet and level of activity. She will follow up with her primary care in 7 to 10 days and will have home health for continued PT and OT. She was referred to [facility] for bilateral knee braces. At least 30 minutes was spent in this discharge activity. TRANSINT:[id number] Voice Confirmation ID: [id number] DOCUMENT ID: [id number] Dictated By: VANNA OLIVEROS I have interviewed/examined the above patient and agree with these documented findings. DISCHARGE SUMMARY REPORT [id number] ARINA DYER SCOTT MD at 1207 at 1049 CC: [id number] DICTATION DATE: 10/13/17 1720 MANUFACTURING ASSOCIATE: 10/13/17 1840 DIS IN 08/23/17 [facility] [address] [place] [address]
== END 2017-08-23 13:57 | disposition home health service (06) | DRG 74 ==
LOC: D.REHAB 15:04
PROVIDERS: ADMIT Emergency Medicine
DX: G61.81 Chronic inflammatory demyelinating polyneuritis (principal); R27.0 Ataxia, unspecified; R20.9 Unspecified disturbances of skin sensation; I10 Essential (primary) hypertension; E53.8 Deficiency of other specified B group vitamins; E03.9 Hypothyroidism, unspecified; E83.119 Hemochromatosis, unspecified; G43.909 Migraine, unspecified, not intractable, without status migrainosus; J44.9 Chronic obstructive pulmonary disease, unspecified; M62.81 Muscle weakness (generalized); D64.9 Anemia, unspecified; Z91.81 History of falling

== ENCOUNTER 2017-09-07 01:37 | Emergency (ER) | payer OTHER ==
[~2017-09-07 01:37] MED LIST: CYMBALTA60 MG PO; MOBIC7.5 MG PO; NEURONTIN 300300 MG PO; NORVASC5 MG PO; OXYCODONE HCL5 MG PO; PREVACID30 MG PO; SYNTHROID75 MCG PO; VITAMIN B-1000 MCG/M IM; VITAMIN B-1100 M1; VITAMIN B-121000 MCG PO; VITAMIN B-625 MG PO; XARELTO20 MG PO; ZOFRAN8 MG PO
[2017-09-07 02:10] LABS: BASOPHILS 0.3 % (0-2); EOSINOPHILS 2.5 % (0-7); HEMATOCRIT 36.6 % (36.0-48.0); HEMOGLOBIN 12.3 g/dL (12-16); IMMATURE GRANULOCYTES 0.1 % (0-5); LYMPHOCYTES 31.5 % (15-50); MCHC 33.6 g/dL (31.0-37.0); MCV 104.3 fL (80.0-100.0); MEAN PLATELET VOLUME 9.1 fL (7.4-10.4); MONOCYTES 6.8 % (2-11); NEUTROPHILS 58.8 % (40-80); RBC 3.51 10x6/uL (4.00-5.40); RDW 15.6 % (11.5-14.5)
[2017-09-07 02:12] LABS: PLATELET COUNT 355 10x3/uL (130-400)
[2017-09-07 02:25] LABS: ALBUMIN 3.6 g/dL (3.4-5.0); ALKALINE PHOSPHATASE 149 U/L (46-116); ALT (SGPT) 14 U/L (10-68); BILIRUBIN - TOTAL 0.41 mg/dL (0.2-1.3); CALC OSMOLALITY 275 mosm/kg (275-300); CALCIUM 9.1 mg/dL (8.5-10.1); CARBON DIOXIDE 24.9 mmol/L (21.0-32.0); CHLORIDE - SERUM 103 mmol/L (98-107); CREATININE - SERUM 1.3 mg/dL (0.6-1.3); GLUCOSE 106 mg/dL (74-106); POTASSIUM - SERUM 3.9 mmol/L (3.5-5.1); PROTEIN - SERUM 7.5 g/dL (6.4-8.2); SODIUM 137 mmol/L (136-145); UREA NITROGEN 18 mg/dL (7-18); eGFR NON AFRICAN AMERICAN 45 mL/min (90-120)
[2017-09-07 02:37] LABS: CKMB 0.2 U/L (0.0-3.6); CREATINE KINASE 26 UL (21-215); PRO BNP 129 pg/mL (0-125); TROPONIN-I < 0.017 ng/mL (0.000-0.060)
== END 2017-09-07 03:08 | disposition home or self-care (01) ==
LOC: D.ER 01:37
PROVIDERS: Family Medicine
DX: R07.89 Other chest pain (principal); I10 Essential (primary) hypertension

== ENCOUNTER 2017-10-11 11:09 | Emergency (ER) | payer OTHER | END 2017-10-11 14:17 | disposition home or self-care (01) | LOC: D.ER 11:09 | DX: S99.911A Unspecified injury of right ankle, initial encounter (principal); W19.XXXA Unspecified fall, initial encounter; Y93.89 Activity, other specified; Y92.029 Unspecified place in mobile home as the place of occurrence of the external cause; M25.571 Pain in right ankle and joints of right foot; I10 Essential (primary) hypertension; F17.200 Nicotine dependence, unspecified, uncomplicated ==